=== PATIENT | female | born 1985 | race African-American/Black ===

== ENCOUNTER 2018-12-16 17:55 | Emergency (ER) | payer OTHER ==
[~2018-12-16] VITALS: Ht 144.8 cm; Wt 85.4 kg
[2018-12-16] MEDS ORDERED: ZANAFLEX4 MG PO (18:04)
[2018-12-16] MEDS ORDERED: NAPROSYN500 MG PO (18:04)
[2018-12-16] MEDS ORDERED: HYDROCHLOROTHIA25 M2 PO (18:04)
[2018-12-16 18:47] LABS: ABSOLUTE BASOPHILS 0.1 thou/uL (0.0-0.2); ABSOLUTE EOSINOPHILS 0.2 thou/uL (0.0-0.7); ABSOLUTE LYMPHOCYTES 2.4 thou/uL (0.8-5.3); ABSOLUTE MONOCYTES 0.6 thou/uL (0.0-1.2); ABSOLUTE NEUTROPHILS 3.3 thou/uL (1.6-8.1); EOSINOPHILS 2.5 %; HEMATOCRIT 35.9 % (37.0-47.0); HEMOGLOBIN 12.2 gm/dL (12.0-15.0); LYMPHOCYTES 36.7 %; MCH 29.1 pg (26.0-34.0); MCHC 34.1 g/dL (28.0-37.0); MCV 85.3 fL (80.0-100.0); MONOCYTES 8.5 %; NUCLEATED RBCS 0 /100WBC; PLATELET COUNT* 258 thou/uL (150-400); POLYS 51.3 %; RDW-CV 13.8 % (10.5-14.5); WBC 6.5 thou/uL (4.0-11.0)
[2018-12-16 19:02] LABS: ANION GAP 8 mmol/L (7-16); BUN 11 mg/dL (7-18); CALCIUM 8.6 mg/dL (8.5-10.1); CHLORIDE 103 mmol/L (98-107); CO2 26 mmol/L (21-32); CREATININE 0.9 mg/dL (0.6-1.3); GLUCOSE 90 mg/dL (70-99); POTASSIUM 3.7 mmol/L (3.5-5.1); PROTIME 9.9 Seconds (9.20-11.50); SODIUM 137 mmol/L (136-145)
[2018-12-16 19:16] LABS: ALKALINE PHOSPHATASE 60 U/L (46-116); LIPASE 201 U/L (73-393); NT-PRO BRAIN NAT PEPTIDE 36 pg/mL (<300); SGOT 12 U/L (15-37); SGPT 28 U/L (30-65); TOTAL BILIRUBIN 0.3 mg/dL (<0.1-1.0); TOTAL PROTEIN 6.8 g/dL (6.4-8.2); TROPONIN-I LEVEL <0.06 ng/mL (<0.06)
[2018-12-16 19:40] VITALS: BP 103/57
--- NOTE | 2018-12-17 16:14 | EKG ---
[place] [address] ELECTROCARDIOGRAM REPORT Name: ROHIT SEGURA Room: [facility]#: [id number] Admission: 12/16/18 Attend Phys: Discharge: 12/16/18 Date of : 81 Report #: [id number] THIS REPORT FOR: //name// [facility] ED Test Date: 2018-12-16 Test Time: 18:01:46 Pat Name: ROHIT SEGURA Department: Room: Gender: F [employer]: : 1985 Requested By: Becca Blas Order Number: [id number] MD: Ori Love Measurements Intervals [place] Rate: 71 P: 46 CO: 137 QRS: 24 QRSD: 101 T: 25 QT: 383 QTc: 417 Interpretive Statements Sinus rhythm RSR' in V1 or V2, probably normal variant ST elev, probable normal early repol pattern No previous ECG available for comparison Electronically Signed On 12-17-2018 16:14:22 CDT by Ori Love [email or web address] <ELECTRONICALLY SIGNED> By: Ori Love MD, [facility] 12/17/18 1614 180 00 Ori Love MD, [facility] /EPI
== END 2018-12-16 19:41 | disposition home or self-care (01) ==
LOC: M.ERS 17:55
PROVIDERS: Personal Emergency Response Attendant
DX: R07.89 Other chest pain (principal); I10 Essential (primary) hypertension